=== PATIENT | female | born 1985 | race African-American/Black ===

== ENCOUNTER 2024-06-22 13:00 | Day surgery (SDC) | payer OTHER, SELFPAY ==
[2024-06-15 13:07] VITALS: BMI 42.7
[2024-06-22] VITALS (9 sets, daily range): BP systolic 109–131; BP diastolic 64–95; PULSE 78–95; RESP 10–19; TEMP 36.4–36.5; O2SAT 95–100; BMI 42.7
--- NOTE | 2024-06-22 | PATH_ITS ---
[facility] Accession Number: [id number] No. of containers..01 Tissue . 01 Material submitted: . gallbladder - GALLBLADDER . 01 Diagnosis: GALLBLADDER, CHOLECYSTECTOMY: Mild chronic cholecystitis with cholelithiasis. [facility] [place] 0930 Local . 01 Electronically signed: . Samira Brooks DO, Pathologist NPI- [id number] . 01 Gross description: . Received in formalin with two identifiers and gallbladder, is an intact gallbladder, 8.9 x 3.0 x 2.9 cm, with a violaceous, unremarkable external surface. The cystic duct margin is inked blue and no pericystic lymph node is identified. The lumen contains numerous yellow faceted calculi up to 1.5 cm in greatest dimension grossly obstructing the cystic duct and admixed with a small amount of clear to lynne thick mucoid bile. The mucosa is lynne, erythematous, and roughened with yellow areas of discoloration and no polyps or lesions identified. The franz average 0.2 cm thick. Player Manager sections to include the cystic duct margin and full-thickness sections are submitted in A1. ([id number]) /MRV 06/23/2024 1829 Local . 01 Pathologist provided ICD-10: K80.11 . 01 CPT . 30134 Specimen Comment: A courtesy copy of this report has been sent to [phone] Performed at: [address] [address], [place], [place] [id number] MD Massimo Montilla MD Phone: [phone]
--- NOTE | 2024-06-22 | DI.RAD.S_ITS ---
PROCEDURE: XR ABDOMEN 1V INDICATIONS: Lap Jessie TECHNIQUE: 3 intraoperative fluoroscopic images of right upper quadrant abdomen were acquired. COMPARISON: None. FINDINGS: Intraoperative fluoroscopic images shows poor physical changes from cholecystectomy. There is normal contrast opacification of common bile duct and proximal small bowel loops without intraluminal filling defect. No common bile duct dilatation. Contrast is also seen extravasating into right upper quadrant adjacent to the liver concerning for bile leak. IMPRESSION: Intraoperative core under grams shows laparoscopic cholecystectomy. There is normal contrast opacification of common bile duct and proximal duodenum without intraluminal filling defect or biliary ductal dilatation. Contrast is seen possibly leaking the air cystic duct into right upper quadrant peritoneal space, suggest clinical correlation for possible bile leak. Dictated by: Silvestre Chaudhari M.D. on 06/27/2024 at 14:38 Approved by: Silvestre Chaudhari M.D. on 06/27/2024 at 14:41
[2024-06-22] MEDS: LACTATED RINGERS 1,000 ML 42 ML IV (14:26)
--- NOTE | 2024-06-22 15:20 | PM.HP.IH.1 ---
History of Present Illness History of Present Illness Date Patient Seen: 06/22/24 Time Patient Seen: 15:20 Chief complaint: SDC Narrative: Unique is a 38-year-old woman with a symptomatic cholelithiasis. See the office note from May for details. [facility] Medical History (Updated 06/15/24 @ 13:12 by Gabrielle Daley RN) Prediabetes Obesity Low back pain (2014) Surgical History (Updated 06/15/24 @ 13:18 by Gabrielle Daley RN) Hx of tubal ligation (2015) History of (2014) Social History household members: spouse Smoking Status: Former smoker alcohol intake: current Meds Home Medications and Allergies Allergies Allergy/AdvReac Type Severity Reaction Status Date / Time Penicillins Allergy Severe Anaphylaxis Verified 06/22/24 13:45 dulaglutide [From Trulicity] Allergy Injection Verified 06/22/24 13:45 site reaction Exam Vital Signs (past 8 hours): - 06/22/24 13:59 Temperature 97.6 F Pulse Rate 78 Respiratory Rate 16 Blood Pressure 109/70 Pulse Oximetry 99 Oxygen Delivery Method Room Air Oxygen Delivery Method Room Air Const General: No acute distress Assessment & Plan Assessment and plan (1) Gallstones: Status: Acute Plan Laparoscopic cholecystectomy Time-Based Coding :: [TOTAL MINUTES] spent with patient and on the chart (including review of chart, obtaining history, exam, reviewing outside data, placing orders, documenting exam and treatment plan, and counseling patient) on [DATE]. 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
[2024-06-22] MEDS: CEFAZOLIN 2 GM/100 ML PREMIX 100 ML IV (15:50)
--- NOTE | 2024-06-22 16:02 | SUR.OPER ---
Supine on padded OR bed, head on pillow, arms secured on padded arm boards at <90 degrees abduction, legs uncrossed, safety belt at thigh, tape over blanket over lower legs.
[2024-06-22] MEDS: BUPIVACAINE 0.5% W/ EPI (PF) 30 ML VIAL INJ (16:10)
[2024-06-22] MEDS: iopamidoL 30 ML VIAL INJ (16:11)
--- NOTE | 2024-06-22 17:18 | P.OP_ITS ---
Operative Date/Time/Diagnoses Date of procedure: 06/22/24 Time of procedure: 17:18 Pre-op diagnosis: Symptomatic cholelithiasis Post-op diagnosis: same Procedure & Clinicians Procedure: Laparoscopic cholecystectomy Same procedure as scheduled: No (The cholangiogram was not performed) Surgeon: Luis Alfredo Dan Recreational Counselor: Ar Dash Anesthesia Type: General Operative Notes Findings: Gallstones Estimated Blood Loss (mL): 20 Procedure in detail: The patient was given preoperative antibiotic. The patient was brought to the operating room, placed on the table in the supine position. General endotracheal anesthesia was induced. The abdomen was prepped and draped. A time-out was performed. We made a 1 cm infraumbilical incision. We dissected down to the base of the umbilical stalk using cautery. We grasped the umbilical stalk with a Elie clamp to elevate the abdominal wall. We scored the fascia in the midline with cautery 1 cm. We pierced the peritoneum with a Peon clamp. The Abhi port was placed and the abdomen was insufflated to 15 mmHg. A 5 mm 30 degree laparoscopic was inserted. There was no evidence of any injury from the entry. Next, we placed 5 mm ports in the subxiphoid position and right upper quadrant at the midclavicular line and anterior axillary line. The patient was then positioned in reverse Trendelenburg and the table was tilted to the left. The gallbladder was grasped at the dome and retracted cephalad. We then dissected the cystic structures with a combination of hook cautery and blunt dissection. We obtained a critical view. Next we attempted a cholangiogram. We made a small ductotomy in the cystic duct. The cholangiocatheter was inserted but seemed to be running up against a valve. An attempt was made to perform a cholangiogram but the contrast was extravasating into the peritoneal cavity and not flowing into the biliary tree so the cholangiogram was aborted. We then placed hemoclips on the cystic duct and artery and divided the cystic duct and artery sharply between the clips. The gallbladder was then dissected off the liver and placed in a specimen retrieval bag. We irrigated the right upper quadrant and all the aspirate returned clear. We then removed the 5 mm ports under direct vision we removed the Abhi port. We then injected some local into the fascia and closed the fascia with [] interrupted 0 Vicryl sutures. The skin incisions were closed with 4 Monocryl and Steri-Strips were applied. Band-Aids were applied over the Steri-Strips. EBL: 20 mL Specimen: Gallbladder Ar LEVY provided assistance with exposure, retraction and closure of incisions. Complications: none Post-operative Condition: stable Disposition: PACU
[2024-06-22] MEDS: ONDANSETRON 4 MG/2 ML INJ IV ×2 (17:38→18:12)
[2024-06-22] MEDS: HYDROMORPHONE 1 MG INJ IV ×2 (17:38→18:07)
[2024-06-22] MEDS: hydrOXYzine 50 MG/ML INJ 25 MG IM (17:48)
[2024-06-22] MEDS: ACETAMINOPHEN IV 1,000 MG/100 ML VIAL 400 MG IV (18:04)
[2024-06-22] MEDS: KETOROLAC 30 MG/ML VIAL IV (18:05)
[2024-06-22] MEDS: METOCLOPRAMIDE 10 MG/2 ML INJ IV (18:18)
[2024-06-22] MEDS: hydrOXYzine HCL 25 MG TABLET PO (18:58)
[2024-06-22] MEDS: OXYCODONE IR 5 MG TABLET PO (18:58)
[2024-06-22] MEDS: MECLIZINE HCL 12.5 MG TABLET 25 MG PO (19:25)
== END 2024-06-22 20:14 | disposition home or self-care (01) ==
PROVIDERS: PCP Nurse Practitioner Family; Referring Provider Surgery; Visit Provider Surgery
PROC: 0FT44ZZ Resection of Gallbladder, Percutaneous Endoscopic Approach (ICD-10-PCS; CPT 47563; principal; 2024-06-22 14:15)
DX: K80.10 Calculus of gallbladder with chronic cholecystitis without obstruction (principal); Z87.891 Personal history of nicotine dependence
CPT/HCPCS: 47562; 74018; 76000; A9270; J0131; J0330; J0690; J1100; J1171; J1885; J2250; J2405; J2704; J2765; J3010; J3410; J3490; Q9967

== ENCOUNTER 2024-12-25 17:16 | Emergency (ER) | payer OTHER, SELFPAY ==
[2024-12-25 17:40] VITALS: BP 123/73; PULSE 80; RESP 16; TEMP 36.4; O2SAT 98; BMI 36.0
[2024-12-25 18:06] LABS: Add Manual Diff / Slide Review NO; Hematocrit 41.5 % (36-46); Hemoglobin 13.9 g/dL (12.0-16.0); Lymphocytes Absolute Auto 1000 /uL (1100-4500); Mean Corpuscular HGB Conc 33.6 % (30-36); Mean Corpuscular Hemoglobin 28.9 PG (26-34); Mean Corpuscular Volume 86.1 fL (80-100); Platelet Count 265 X10^3/uL (150-400)
[2024-12-25 18:16] LABS: Alanine Aminotransferase 120 IU/L (<35); Albumin 4.6 g/dL (3.5-5.0); Albumin Globulin Ratio 1.3 (1.0-2.8); Alkaline Phosphatase 151 U/L (38-126); Blood Urea Nitrogen 13 mg/dL (7-17); Calcium 9.4 mg/dL (8.4-10.2); Carbon Dioxide 25 mmol/L (22-32); Chloride 106 mmol/L (98-107); Estimated Glomerular Filt Rate > 60 mL/min (>60); Globulin 3.6 g/dL (1.7-4.1); Glucose 100 mg/dL (70-99); HEMOLYSIS 15 (0-50); Lipase 107 U/L (23-300); Potassium 3.9 mmol/L (3.4-5.1); Sodium 139 mmol/L (137-145); Total Protein 8.2 g/dL (6.3-8.2)
--- NOTE | 2024-12-25 19:23 | DI.CT.S_ITS ---
PROCEDURE: CT ABDOMEN PELVIS W CON INDICATIONS: abd pain TECHNIQUE: After the administration of intravenous contrast, axial sections acquired from the lung bases to the pubic symphysis. Coronal and sagittal reformats were performed. For radiation dose reduction, the following was used: automated exposure control, adjustment of mA and/or kV according to patient size. COMPARISON: None. FINDINGS: Image quality: Diagnostic. Lower Chest: No significant findings. ABDOMEN: Liver: No solid mass. Gallbladder: Surgically absent Biliary ducts: No biliary dilation. Pancreas: No ductal dilation. Spleen: Size is within normal limits. Adrenal Glands: No adrenal nodules. Kidneys and Ureters: No hydronephrosis. No solid mass. No complex renal cystic lesion which requires follow up. Stomach and Bowel: Normal colonic caliber, without significant wall thickening. Normal caliber appendix. Peritoneum: No abnormal intraperitoneal fluid. No free air. Ventral Wall: No significant ventral hernia. Abdominal Nodes: No retroperitoneal or mesenteric adenopathy by size criteria. Vessels: Aorta and inferior vena cava are normal in size. PELVIS: Pelvic Organs: Unremarkable. Bladder: Bladder is decompressed limiting evaluation. Pelvic Nodes: No enlarged lymph nodes. Miscellaneous: No inguinal hernias are seen. Bones: No aggressive osseous abnormality. IMPRESSION: No acute abdominopelvic process. Normal caliber appendix. Approved by: Bia Patel M.D.,Ph.D. on 12/25/2024 at 22:33
[2024-12-25] MEDS: KETOROLAC 30 MG/ML VIAL 15 MG IV (19:59)
[2024-12-25 20:38] VITALS: BP 115/62; PULSE 76; RESP 18; TEMP 36.4; O2SAT 97
--- NOTE | 2024-12-25 20:40 | PC.NURSE ---
Unable to apply cardiac monitoring due to patient being in results pending RP1 area. spikemaking supervisor May made aware.
--- NOTE | 2024-12-25 20:43 | ED.ABDPAIN ---
HPI - Abdominal Pain General Chief Complaint: Abdominal Pain Stated Complaint: Abd pain x48 hours, cold sweats, nausea Time Seen by Provider: 12/25/24 17:57 Source: patient Mode of arrival: Family Vehicle History of Present Illness HPI narrative: 39 year old female history cholecystectomy currently on Zepbound presents with epigastric pain radiating to periumbilical area and round to the back started yesterday associated with diarrhea. Today pain continued with eating and started to have nausea also. Last menstrual period week and a half ago. Other than what is stated 14 point review of system is negative. Related Data Previous Rx's ?Medication ?Instructions ?Recorded promethazine 12.5 mg tablet 25 mg (2 x 12.5 mg) PO TID PRN 06/28/24 nausea and vomiting #20 tabs pantoprazole 40 mg granules 40 mg PO DAILY #30 ea 12/25/24 delayed-release for susp in packet (Protonix) Allergies Allergy/AdvReac Type Severity Reaction Status Date / Time Penicillins Allergy Severe Anaphylaxis Verified 12/25/24 18:09 dulaglutide (From Trulicity) Allergy Injection Verified 12/25/24 18:09 site reaction ondansetron (From Zofran) AdvReac Migraines Verified 12/25/24 18:09 Review of Systems Review of Systems ROS Unobtainable: All systems reviewed & are unremarkable except as noted in HPI and below Patient History Medical History (Updated 12/25/24 @ 23:13 by Marcelino Pitts DO) Prediabetes Obesity Low back pain (2014) Surgical History (Updated 06/15/24 @ 13:18 by Gabrielle Daley RN) Hx of tubal ligation (2015) History of (2014) Social History household members: spouse Smoking Status: Former smoker alcohol intake: current Smoking Status: Former smoker tobacco type: cigarettes Exam Narrative Exam Narrative: GENERAL: [39] year old patient appears stated age. Well-developed patient, in mild distress. HEAD: Atraumatic. Normocephalic. EYES: Pupils equal round and reactive. Extraocular motions intact. No scleral icterus. No injection or drainage. NECK: Trachea midline. Non tender GASTROINTESTINAL: Abdomen soft, Epigastric TTP nondistended. EXTREMITIES: No edema or joint tenderness. BACK: Nontender without deformity or crepitance. No flank tenderness. NEURO: AOx3. SKIN: No rash or erythema of visible areas Initial Vital Signs Initial Vital Signs: Vital Signs Temperature 97.6 F 12/25/24 17:40 Pulse Rate 80 12/25/24 17:40 Respiratory Rate 16 12/25/24 17:40 Blood Pressure 123/73 12/25/24 17:40 Pulse Oximetry 98 12/25/24 17:40 Oxygen Delivery Method Room Air 12/25/24 17:40 Course Orders Ordered: ED Orders 12/25/24 17:53 Complete Blood Count AUTO DIFF Stat Comprehensive Metabolic Panel Stat Lipase Stat 12/25/24 19:23 CT abdomen pelvis w con Stat Discontinued Medications Hydromorphone HCl (Hydromorphone 1 Mg/Ml Syringe) 1 mg IV NOW ONE Stop: 12/25/24 21:27 Last Admin: 12/25/24 21:45 Dose: 1 mg Documented By: ITZ Ketorolac Tromethamine (Ketorolac 30 Mg/Ml Vial) 15 mg IV NOW ONE Stop: 12/25/24 19:32 Last Admin: 12/25/24 19:59 Dose: 15 mg Documented By: STEPHEN Metoclopramide HCl (Metoclopramide 10 Mg/2 Ml Inj) 10 mg IV NOW ONE Stop: 12/25/24 21:30 Last Admin: 12/25/24 21:46 Dose: 10 mg Documented By: ITZ Ondansetron HCl (Ondansetron 4 Mg/2 Ml Inj) 4 mg IV NOW PRN PRN Reason: Nausea And Vomiting Ondansetron HCl (Ondansetron 4 Mg Odt) 4 mg PO NOW PRN PRN Reason: Nausea And Vomiting Vital Signs Vital signs: Vital Signs - 8 hr 12/25/24 17:40 12/25/24 20:38 12/25/24 22:19 Temperature 97.6 F 97.6 F Pulse Rate 80 76 85 Respiratory Rate 16 18 16 Blood Pressure 123/73 115/62 123/59 L Pulse Oximetry 98 97 95 Oxygen Delivery Method Room Air Room Air Room Air MDM - Abdominal Pain Lab Data 12/25/24 17:53 12/25/24 17:53 Labs: Lab Results 12/25/24 Range/Units 17:53 WBC 7.4 (4.5-11.0) X10^3/uL RBC 4.82 (4.0-5.2) X10^6/uL Hgb 13.9 (12.0-16.0) g/dL Hct 41.5 (36-46) % MCV 86.1 (80-100) fL MCH 28.9 (26-34) PG MCHC 33.6 (30-36) % RDW 13.5 (11.6-14.8) % Plt Count 265 (150-400) X10^3/uL Neut % (Auto) 77.4 H (50-75) % Lymph % (Auto) 14.1 L (25-40) % [place] % (Auto) 7.1 (3-14) % Eos % (Auto) 0.8 L (2-4) % Baso % (Auto) 0.6 (0-2) % Neut # (Auto) 5700 (9716-6965) /uL Lymph # (Auto) 1000 L (0633-7572) /uL [place] # (Auto) 500 (0-900) /uL Eos # (Auto) 100 (0-450) /uL Baso # (Auto) 0 (0-100) /uL Sodium 139 (137-145) mmol/L Potassium 3.9 (3.4-5.1) mmol/L Chloride 106 (98-107) mmol/L Carbon Dioxide 25 (22-32) mmol/L BUN 13 (7-17) mg/dL Creatinine 0.82 (0.52-1.04) mg/dL Estimated GFR > 60 (>60) mL/min BUN/Creatinine Ratio 15.9 (6-22) Glucose 100 H (70-99) mg/dL Calcium 9.4 (8.4-10.2) mg/dL Total Bilirubin 1.2 (0.2-1.3) mg/dL AST 200 H (14-36) IU/L ALT 120 H (<35) IU/L Alkaline Phosphatase 151 H (38-126) U/L Total Protein 8.2 (6.3-8.2) g/dL Albumin 4.6 (3.5-5.0) g/dL Globulin 3.6 (1.7-4.1) g/dL Albumin/Globulin Ratio 1.3 (1.0-2.8) Lipase 107 (23-300) U/L Point of care testing: Urine Dip Bedside Urine Glucose Negative Bedside Urine Bilirubin - Negative Bedside Urine Ketone +/- 5 Urine Specific [place] 1.005 Bedside Urine Occult Blood - Negative Bedside Urine pH 7.5 Bedside Urine Protein - Negative Bedside Urine Urobilinogen - Negative Bedside Urine Nitrite - Negative Bedside Urine Leukocytes - Negative Esterase Imaging Data CT scan - abdomen/pelvis: Radiologist's Impression: [address] [address] [address] Scan Report Signed Patient: Unique Jung MR#: [id number] : 1985 Acct:[id number] Age/Sex: 39 / F Date of Service: 12/25/24 Loc: ED Accession Number: [id number] Procedure: CT abdomen pelvis w con Ordering Provider: Marcelino Pitts D.O. PROCEDURE: CT ABDOMEN PELVIS W CON INDICATIONS: abd pain TECHNIQUE: After the administration of intravenous contrast, axial sections acquired from the lung bases to the pubic symphysis. Coronal and sagittal reformats were performed. For radiation dose reduction, the following was used: automated exposure control, adjustment of mA and/or kV according to patient size. COMPARISON: None. FINDINGS: Image quality: Diagnostic. Lower Chest: No significant findings. ABDOMEN: Liver: No solid mass. Gallbladder: Surgically absent Biliary ducts: No biliary dilation. Pancreas: No ductal dilation. Spleen: Size is within normal limits. Adrenal Glands: No adrenal nodules. Kidneys and Ureters: No hydronephrosis. No solid mass. No complex renal cystic lesion which requires follow up. Stomach and Bowel: Normal colonic caliber, without significant wall thickening. Normal caliber appendix. Peritoneum: No abnormal intraperitoneal fluid. No free air. Ventral Wall: No significant ventral hernia. Abdominal Nodes: No retroperitoneal or mesenteric adenopathy by size criteria. Vessels: Aorta and inferior vena cava are normal in size. PELVIS: Pelvic Organs: Unremarkable. Bladder: Bladder is decompressed limiting evaluation. Pelvic Nodes: No enlarged lymph nodes. Miscellaneous: No inguinal hernias are seen. Bones: No aggressive osseous abnormality. IMPRESSION: No acute abdominopelvic process. Normal caliber appendix. Approved by: Bia Patel M.D.,Ph.D. on 12/25/2024 at 22:33 MDM Narrative Medical decision making narrative: All lab work, vital signs, nurse triage note, medication list, previous ER visits, and all imaging studies reviewed. CT abdomen pelvis showed no acute abdomin.al pelvic process normal caliber appendix. WBC 7.4 hemoglobin 13.9 platelet 265. sodium 139 potassium 3.9 chloride 106 CO2 25 BUN 13 creatinine 0.82 glucose 100 AST 200 ALT 120 alk-phos 151 T bili 1.2 lipase 107. differential diagnosis UTI sepsis kidney stone kidney infection diverticulitis constipation pancreatitis. D/c home on norco take home pack and protonix. will have patient follow up with PCP and may need GI referral for endoscopy colonoscopy still symptomatic Discharge Plan Departure Patient Disposition: Home Clinical Impression: Abdominal pain Instructions: DI for Abdominal Pain-Adult Activity Restrictions/Additional Instructions: Return with new or worsening symptoms. F/U with PCP for further workup including possible GI MD referral for colonoscopy and or endoscopy and possible zepbound side effect. Given protonix rx and norco take home pack Prescriptions: New pantoprazole [Protonix] [address] for susp in packet 40 mg PO DAILY Qty: 30 0RF No Action promethazine 12.5 mg tablet 25 mg PO TID PRN (Reason: nausea and vomiting) Qty: 20 0RF Referrals: Sandra Salazar ARNP [Primary Care Provider, Nursing] Stand Alone Forms: Patient Portal/API
[2024-12-25] MEDS: METOCLOPRAMIDE 10 MG/2 ML INJ IV (21:46)
--- NOTE | 2024-12-25 22:01 | PC.NURSE ---
Patient sitting in RP1 area. This RN asks patient if OK to talk and medicate patient out in this area. Patient gives verbal consent to go ahead and treat/medicate.
[2024-12-25 22:19] VITALS: BP 123/59; PULSE 85; RESP 16; O2SAT 95
--- NOTE | 2024-12-25 23:12 | PC.NURSE ---
Patient reports some burning and reflux in her esophagus. Provider Hong made aware and sees patient.
[2024-12-25] MEDS: PANTOPRAZOLE 40 MG VIAL IV (23:23)
[2024-12-25 23:54] VITALS: BP 110/78; PULSE 72; RESP 20; O2SAT 98
== END 2024-12-25 23:57 | disposition home or self-care (01) ==
PROVIDERS: Emergency Medicine; Emergency Provider Family Medicine; PCP Nurse Practitioner Family
DX: R10.13 Epigastric pain (principal)
CPT/HCPCS: 36415; 74177; 80053; 81003; 83690; 85025; 96374; 96375; 99284; J1171; J1885; J2470; J2765